=== PATIENT | male | born 1980 | race Caucasian/White ===

== ENCOUNTER 2018-11-14 19:17 | Emergency (ER) | payer SELFPAY ==
[2018-11-14] MEDS ORDERED: methylPREDNISolone 125 MG* 2 ML VIAL IM ONE (19:25)
[2018-11-14] MEDS ORDERED: Albuterol 2.5 MG/3 ML NEB.SOL* (0.083%) INH ONE ×2 (19:25→20:29)
--- NOTE | 2018-11-14 19:31 | UC ---
General HPI - HPI Summary HPI Summary: pt is c/o cough with congestion and wheezing since yesterday. + sob. No hx asthma, COPD or f/c's. + smoker. c/o chest heaviness which he describes as lungs being tight. he denies any cp. - History of Current Complaint Stated Complaint: CHEST CONGESTION,COUGH Time Seen by Provider: 11/14/18 19:24 Hx Obtained From: Patient Onset/Duration: Gradual Onset Timing: Constant - Allergy/Home Medications Allergies/Adverse Reactions: Allergies Allergy/AdvReac Type Severity Reaction Status Date / Time Penicillins Allergy Hives Verified 11/14/18 19:29 PMH/Surg Hx/FS Hx/Imm Hx Previously Healthy: Yes - Family History Known Family History: Positive: Non-Contributory - Social History Occupation: Employed Full-time Review of Systems All Other Systems Reviewed And Are Negative: Yes Constitutional: Negative: Fever, Chills Respiratory: Positive: Shortness Of Breath, Cough Cardiovascular: Negative: Palpitations, Chest Pain Physical Exam Triage Information Reviewed: Yes Appearance: Well-Appearing Vital Signs Reviewed: Yes Eyes: Positive: Conjunctiva Clear ENT: Positive: Normal ENT inspection Neck: Positive: Supple Respiratory: Positive: No respiratory distress, Decreased breath sounds, Expiration Cardiovascular: Positive: RRR, No Murmur Abdomen Description: Positive: Nontender Musculoskeletal: Positive: ROM Intact Neurological: Positive: Alert Psychological: Positive: Age Appropriate Behavior Skin Exam: Normal Re-Evaluation - Re-Evaluation First Eval Re-Evaluation Time: 20:28 Change: Improved - much less wheezing. pt feeling breathing is easier. Second Eval Re-Evaluation Time: 21:00 Change: Improved - pt states " I feel much better". repeat sat on RA is 90-91%. aeration is decreased but mostly clear with only an occasinal wheeze Course/Dx - Course Course Of Treatment: PT IMPROVED WITH NEBULIZER TX'S AND STEROID; HOWEVER, HE REMAINED HYPOXIC THUS ER TRANSFER ADVISED. PT REFUSED ER TRANSFER DESPITE RISK OF WORSENING, DISABILITY AND . HE IS A&OX3 AND ABLE TO MAKE DECISIONS THUS I MUST RESPECT HIS WISH TO GO HOME. I WILL STILL TX WITH AN ALBUTEROL INHALER AND PO PREDNISONE. - Differential Dx - Multi-Symptom Differential Diagnoses: Other - NO PTX OR INFILTRATE ON CXR. PT IMPROVED WITH NEBULIZER TX'S AND STEROID; HOWEVER, HE REMAINED HYPOXIC THUS ER - Diagnoses Provider Diagnosis: Bronchospasm, acute, Left against medical advice Discharge - Sign-Out/Discharge Documenting (check all that apply): Patient Departure All imaging exams completed and their final reports reviewed: No - Discharge Plan Condition: Stable Disposition: AGAINST MEDICAL ADVICE Prescriptions: predniSONE [Prednisone 20 MG TAB] 40 mg PO DAILY 5 Days #10 tablet Patient Education Materials: Bronchospasm (ED) Referrals: BRIT Luke [Medical Doctor] - As Soon As Possible Additional Instructions: USE THE ALBUTEROL INHALER 2 PUFFS EVERY 6 HOURS. GO TO THE ER AT ANY TIME IF YOU CHANGE YOUR MIND. - Billing Disposition and Condition Condition: STABLE Disposition: Against Medical Advice
[2018-11-14 20:28] VITALS: BP 145/83
[2018-11-14] MEDS ORDERED: Albuterol HFA INHALER* 8 gm MDI INH ONE (21:05)
--- NOTE | 2018-11-15 13:54 | UC ---
- Progress Note Progress Note: Radiology reading of chest x-ray from November 14, 2018 comes back as no acute disease process. Provider interpretation of the same date is no infiltrate therefore there is no discrepancy. Course/Dx - Diagnoses Provider Diagnoses: Bronchospasm, acute, Left against medical advice Discharge - Sign-Out/Discharge Documenting (check all that apply): Patient Departure All imaging exams completed and their final reports reviewed: Yes - Discharge Plan Condition: Stable Disposition: AGAINST MEDICAL ADVICE Prescriptions: predniSONE [Prednisone 20 MG TAB] 40 mg PO DAILY 5 Days #10 tablet Patient Education Materials: Bronchospasm (ED) Referrals: BRIT Luke [Medical Doctor] - As Soon As Possible Additional Instructions: USE THE ALBUTEROL INHALER 2 PUFFS EVERY 6 HOURS. GO TO THE ER AT ANY TIME IF YOU CHANGE YOUR MIND. - Billing Disposition and Condition Condition: STABLE Disposition: Against Medical Advice
== END 2018-11-14 21:17 | disposition left against medical advice (07) ==
LOC: UCCORT 19:17
DX: J98.01 Acute bronchospasm (principal); Z88.0 Allergy status to penicillin
CPT/HCPCS: 71046; 96372; 99203; A9270-GY; G0463; J2930

== ENCOUNTER 2022-10-13 13:04 | Inpatient (IN) ==
[2022-10-13] MEDS ORDERED: Lactated Ringers 1000 ml BAG 1,000 ML IV ONE (13:29)
[2022-10-13 14:20] LABS: Hematocrit 49.1 % (38-53); Hemoglobin 16.4 g/dL (13.2-16.3); Mean Corpuscular Hgb Conc 33.3 g/dL (31-36); Mean Corpuscular Volume 74.9 fL (80-97); Red Blood Count 6.55 10^6/uL (4.06-5.63); Red Cell Distribution Width 19.1 % (12-17); White Blood Count 5.7 10^3/uL (3.6-10.2)
[2022-10-13 14:21] LABS: ALT 17 U/L (7-52); AST 10 U/L (13-39); Albumin 2.9 g/dL (3.2-5.2); Albumin/Globulin Ratio 0.6 (1-3); Alkaline Phosphatase 230 U/L (35-149); Anion Gap 12 mmol/L (2-16); Blood Urea Nitrogen 9 mg/dL (6-24); CO2 Carbon Dioxide 28 mmol/L (22-32); Calcium 8.8 mg/dL (8.6-10.3); Chloride 84 mmol/L (101-111); Creatine Kinase 35 U/L (10-223); Creatinine, Serum 0.66 mg/dL (0.67-1.17); Globulin 4.8 g/dL (2-4); Magnesium 1.6 mg/dL (1.9-2.7); Phosphorus 3.5 mg/dL (2.5-5.0); Sodium 124 mmol/L (135-145); Total Protein 7.7 g/dL (6.4-8.9); eGFR CKD-EPI 119.3 (>60)
[2022-10-13 14:24] LABS: High Sens Troponin Baseline 8 pg/mL (<20)
[2022-10-13 14:37] LABS: Urine Appearance Clear; Urine Bilirubin Negative (Negative); Urine Blood Negative (Negative); Urine Color Yellow; Urine Glucose 3+(>=500 mg/dL) (Negative); Urine Ketones Trace (Negative); Urine Nitrite Negative (Negative); Urine Protein Negative (Negative); Urine Specific Gravity 1.029 (1.002-1.030); Urine Urobilinogen Negative (Negative)
[2022-10-13] MEDS ORDERED: Iohexol 350 (CONTRAST) 500 ML MDV IV ONE (14:47)
[2022-10-13 14:48] LABS: TSH Ultra Thyroid Stim Horm 3.97 mcIU/mL (0.34-5.60)
[2022-10-13 14:54] LABS: ABS Lymphocytes 0.5 10^3/uL (1.0-4.8); ABS Monocytes 0.3 10^3/uL (0.0-1.1); ABS Neutrophils 4.8 10^3/uL (1.5-7.6); ABS Nucleated RBC 0.01 10^3/ul; Eosinophil % 0.1 %; Mean Platelet Volume 8.5 fL (7.5-11.2); Microcytosis 2+; Nucleated Red Blood Cells % 0.1 /100 WBC (0.0-0.4); Platelet Count 643 10^3/uL (150-450)
[2022-10-13] MEDS ORDERED: Iodixanol (CONTRAST) 320 MG/ML 100 ML SDV IV ONE (15:05)
[2022-10-13] MEDS ORDERED: Morphine 4 MG/ML VIAL (1 ml) IV ONE (15:21)
[2022-10-13 15:29] LABS: High Sensitivity Troponin 1 Hr 6 pg/mL (<20)
[2022-10-13] MEDS ORDERED: Cefepime 2 GM in Dextrose 2 GM/50 ML BAG IV ONE (15:37)
[2022-10-13] MEDS ORDERED: NS 0.9% 1000 ml BAG 1,000 ML IV ONE (15:39)
[2022-10-13 15:51] LABS: C Reactive Protein 348.54 mg/L (<8.01)
[2022-10-13] MEDS ORDERED: Vancomycin 1,250 MG in NS 0.9% 250 ml 250 ML IVPB ONE (16:00)
[2022-10-13 17:02] LABS: Hematocrit 43.5 % (38-53); Mean Corpuscular Hemoglobin 24.3 pg (27-33); Mean Corpuscular Hgb Conc 32.3 g/dL (31-36); Mean Corpuscular Volume 75.2 fL (80-97); Mean Platelet Volume 8.3 fL (7.5-11.2); Platelet Count 540 10^3/uL (150-450); Red Blood Count 5.78 10^6/uL (4.06-5.63); Red Cell Distribution Width 18.7 % (12-17); White Blood Count 7.6 10^3/uL (3.6-10.2)
[2022-10-13] MEDS ORDERED: Dextrose 50% Syringe 50 ml 25 GM/50 ML SYRINGE IV PUSH PRN ×3 (17:13→17:30)
[2022-10-13] MEDS ORDERED: Insulin GLARGINE 100 un/ml 10 ml VIAL SUBCUT ONE ×2 (17:13→17:30)
[2022-10-13 17:17] LABS: Glucose Confirmatory 461 mg/dL (70-100)
[2022-10-13] MEDS ORDERED: Vancomycin per Pharmacy 1 EA NOTE FOLLOW UP PRN (17:18)
[2022-10-13] MEDS ORDERED: Magnesium Sulf 4 GM/100 ML IV 4,000 MG/100 ML BAG IVPB ONE (17:19)
[2022-10-13 17:42] LABS: Glucose 546 mg/dL (70-100)
[2022-10-13] MEDS ORDERED: Zosyn per Pharmacy NOTE FOLLOW UP SCH (18:00)
[2022-10-13] MEDS: Lactated Ringers 1000 ml BAG 1,000 ML IV SCH (18:05)
[2022-10-13 18:11] LABS: Lipase < 10 U/L (11.0-82.0)
[2022-10-13 18:28] LABS: Albumin 2.1 g/dL (3.2-5.2); Albumin/Globulin Ratio 0.6 (1-3); Calcium 7.5 mg/dL (8.6-10.3); Creatinine, Serum 0.63 mg/dL (0.67-1.17); Globulin 3.3 g/dL (2-4); Magnesium 1.4 mg/dL (1.9-2.7); Phosphorus 3.2 mg/dL (2.5-5.0); Potassium 3.9 mmol/L (3.5-5.0); Total Bilirubin 0.3 mg/dL (0.2-1.0); Total Protein 5.4 g/dL (6.4-8.9)
[2022-10-13] MEDS ORDERED: HYDROmorphone 0.5 MG/0.5 ML SYRINGE IV SLOW PU ONE (21:53)
[2022-10-14] MEDS: Vancomycin 750 MG in NS 0.9% 250 ML IVPB SCH ×3 (03:01→17:35)
[2022-10-14] MEDS: Lactated Ringers 1000 ml BAG 1,000 ML IV SCH ×3 (03:01→18:00)
[2022-10-14] MEDS ORDERED: Cefepime 2 GM in Dextrose 2 GM/50 ML BAG IV SCH (04:00)
[2022-10-14 04:16] LABS: Hematocrit 45.8 % (38-53); Mean Corpuscular Hemoglobin 24.5 pg (27-33); Mean Corpuscular Hgb Conc 32.8 g/dL (31-36); Mean Corpuscular Volume 74.8 fL (80-97); Mean Platelet Volume 8.1 fL (7.5-11.2); Platelet Count 569 10^3/uL (150-450); Red Blood Count 6.13 10^6/uL (4.06-5.63); Red Cell Distribution Width 19.1 % (12-17); White Blood Count 21.4 10^3/uL (3.6-10.2)
[2022-10-14 04:31] LABS: Albumin 2.3 g/dL (3.2-5.2); Albumin/Globulin Ratio 0.7 (1-3); Calcium 8.1 mg/dL (8.6-10.3); Creatinine, Serum 0.69 mg/dL (0.67-1.17); Globulin 3.4 g/dL (2-4); Magnesium 2.7 mg/dL (1.9-2.7); Phosphorus 3.8 mg/dL (2.5-5.0); Potassium 3.6 mmol/L (3.5-5.0); Total Bilirubin 0.2 mg/dL (0.2-1.0); Total Protein 5.7 g/dL (6.4-8.9); eGFR CKD-EPI 117.8 (>60)
[2022-10-14 04:38] LABS: ABS Basophils 0.1 10^3/uL (0.0-0.1); ABS Lymphocytes 0.9 10^3/uL (1.0-4.8); ABS Monocytes 0.4 10^3/uL (0.0-1.1); ABS Nucleated RBC 0.01 10^3/ul; Eosinophil % 0.1 %; Lymphocyte % 4.2 %
[2022-10-14] MEDS ORDERED: KCL 20 MEQ/100 ML IVPREMIX 20 MEQ/100 ML BAG ONE (07:37)
[2022-10-14] MEDS: KCL 20 MEQ/100 ML IVPREMIX 20 MEQ/100 ML BAG IV SCH ×2 (07:43→10:02)
[2022-10-14] MEDS ORDERED: Lactated Ringers 1000 ml BAG 1,000 ML IV ONE (09:29)
[2022-10-14] MEDS: Pantoprazole VIAL 40 MG VIAL IV SCH (11:42)
[2022-10-14] MEDS ORDERED: HYDROmorphone 1 MG/1 ML SYRINGE IV ONE (12:15)
[2022-10-14 12:37] LABS: Body Fluid Appearance Cloudy; Body Fluid Source Peritonial Fluid
[2022-10-14 12:38] LABS: Body Fluid Color Amber
[2022-10-14 12:42] LABS: Body Fluid WBC 22283 /mcL
[2022-10-14] MEDS ORDERED: HYDROmorphone 1 MG/1 ML SYRINGE IV SLOW PU PRN (13:17)
[2022-10-14 13:33] LABS: Body Fluid Mono 3 %; Body Fluid Total Cells Counted 200
[2022-10-14 16:05] LABS: Body Fluid Appearance Cloudy; Body Fluid Color Amber; Body Fluid Source Peritonial Fluid
[2022-10-14] MEDS ORDERED: Vancomycin Trough Check NOTE FOLLOW UP ONE (16:30)
[2022-10-14 17:14] LABS: Body Fluid WBC 11502 /mcL
[2022-10-14 17:17] LABS: Body Fluid Mono 9 %; Body Fluid Total Cells Counted 200
[2022-10-14] MEDS ORDERED: Gadoteridol (CONTRAST) 279.3 MG/ML 10 ML IV ONE (21:55)
[2022-10-14] MEDS: Nystatin SUSPENSION 100,000 UNITS/ML UDC PO SCH (22:30)
[2022-10-14] MEDS: Enoxaparin 40 MG/0.4 ML SYR SUBCUT SCH (22:31)
[2022-10-15] MEDS: Vancomycin 1,000 MG in NS 0.9% 250 ml 250 ML IVPB SCH ×3 (00:50→17:28)
[2022-10-15] MEDS: Acetaminophen IV 1 GM/100ML 1,000 MG/100 ML BAG IV PRN ×2 (03:43→17:26)
[2022-10-15] MEDS: Lactated Ringers 1000 ml BAG 1,000 ML IV SCH ×2 (04:53→17:08)
[2022-10-15 05:24] LABS: Hematocrit 33.1 % (38-53); Hemoglobin 11.1 g/dL (13.2-16.3); Mean Corpuscular Hemoglobin 24.4 pg (27-33); Mean Corpuscular Hgb Conc 33.6 g/dL (31-36); Mean Corpuscular Volume 72.8 fL (80-97); Platelet Count 465 10^3/uL (150-450); Red Blood Count 4.55 10^6/uL (4.06-5.63); Red Cell Distribution Width 19.1 % (12-17); White Blood Count 25.4 10^3/uL (3.6-10.2)
[2022-10-15 05:34] LABS: Albumin/Globulin Ratio 0.6 (1-3); Calcium 8.2 mg/dL (8.6-10.3); Creatinine, Serum 0.62 mg/dL (0.67-1.17); Globulin 3.2 g/dL (2-4); Magnesium 1.8 mg/dL (1.9-2.7); Potassium 4.7 mmol/L (3.5-5.0); Total Bilirubin 0.2 mg/dL (0.2-1.0); Total Protein 5.2 g/dL (6.4-8.9); eGFR CKD-EPI 121.6 (>60)
[2022-10-15 06:11] LABS: Anisocytosis 2+
[2022-10-15 06:12] LABS: ABS Lymphocytes 0.7 10^3/uL (1.0-4.8); ABS Monocytes 0.6 10^3/uL (0.0-1.1); ABS Neutrophils 24.1 10^3/uL (1.5-7.6); Lymphocyte % 2.7 %; Polychromasia 1+
[2022-10-15] MEDS ORDERED: Magnesium Sulfate 2 gm BAG 2 GM/50 ML BAG IVPB ONE (07:49)
[2022-10-15 08:13] LABS: Urine Benzodiazepine Screen None Detected (None Detect); Urine Buprenorphine Screen None Detected (None Detect); Urine Cannabinoids Screen None Detected (None Detect); Urine Fentanyl Screen Presumptive Positive (None Detect); Urine Hydrocodone Screen Presumptive Positive (None Detect); Urine Opiates Screen Presumptive Positive (None Detect)
[2022-10-15] MEDS: Pantoprazole VIAL 40 MG VIAL IV SCH (10:10)
[2022-10-15] MEDS: Nystatin SUSPENSION 100,000 UNITS/ML UDC PO SCH ×4 (10:10→20:03)
[2022-10-15 15:20] LABS: Albumin, BF 1.7 g/dL; Fluid Type, Albumin PERITONEAL FLUID; Fluid Type, Protein, Total PERITONEAL FLUID; Total Protein, BF 4.1 g/dL
[2022-10-15 17:33] LABS: ABS Basophils 0.2 10^3/uL (0.0-0.1); ABS Lymphocytes 0.8 10^3/uL (1.0-4.8); ABS Monocytes 0.6 10^3/uL (0.0-1.1); ABS Neutrophils 25.8 10^3/uL (1.5-7.6); ABS Nucleated RBC 0.01 10^3/ul; Hemoglobin 11.4 g/dL (13.2-16.3); Lymphocyte % 2.9 %; Mean Corpuscular Hemoglobin 24.1 pg (27-33); Mean Corpuscular Hgb Conc 32.6 g/dL (31-36); Mean Corpuscular Volume 74.1 fL (80-97); Mean Platelet Volume 7.9 fL (7.5-11.2); Platelet Count 485 10^3/uL (150-450); Red Blood Count 4.72 10^6/uL (4.06-5.63); Red Cell Distribution Width 18.9 % (12-17); White Blood Count 27.3 10^3/uL (3.6-10.2)
[2022-10-15 17:46] LABS: Calcium 8.7 mg/dL (8.6-10.3); Creatinine, Serum 0.59 mg/dL (0.67-1.17); eGFR CKD-EPI 123.5 (>60)
[2022-10-15] MEDS: metroNIDAZOLE IV 500 MG/100ML 500 MG/100 ML BAG IVPB SCH (20:02)
[2022-10-15] MEDS: Cefepime 2 GM in Dextrose 2 GM/50 ML BAG IV SCH (20:03)
[2022-10-15] MEDS: Enoxaparin 40 MG/0.4 ML SYR SUBCUT SCH (20:37)
[2022-10-15] MEDS ORDERED: Insulin GLARGINE 100 un/ml 10 ml VIAL SUBCUT SCH (21:00)
[2022-10-16] MEDS: Vancomycin 1,000 MG in NS 0.9% 250 ml 250 ML IVPB SCH ×3 (00:09→15:57)
[2022-10-16] MEDS: metroNIDAZOLE IV 500 MG/100ML 500 MG/100 ML BAG IVPB SCH ×3 (02:14→17:36)
[2022-10-16] MEDS ORDERED: HYDROmorphone 0.5 MG/0.5 ML SYRINGE IV SLOW PU PRN (02:35)
[2022-10-16] MEDS ORDERED: Naloxone Nasal Spray 4 MG/0.1 ML NASAL.SPR INTRANASAL PRN (02:36)
[2022-10-16] MEDS: Acetaminophen IV 1 GM/100ML 1,000 MG/100 ML BAG IV SCH ×3 (03:03→17:36)
[2022-10-16] MEDS: Cefepime 2 GM in Dextrose 2 GM/50 ML BAG IV SCH ×2 (05:48→18:16)
[2022-10-16 06:26] LABS: ABS Basophils 0.1 10^3/uL (0.0-0.1); ABS Lymphocytes 0.8 10^3/uL (1.0-4.8); ABS Monocytes 0.6 10^3/uL (0.0-1.1); ABS Neutrophils 27.8 10^3/uL (1.5-7.6); Eosinophil % 0.1 %; Hematocrit 33.7 % (38-53); Hemoglobin 10.9 g/dL (13.2-16.3); Lymphocyte % 2.8 %; Mean Corpuscular Hemoglobin 23.7 pg (27-33); Mean Corpuscular Hgb Conc 32.2 g/dL (31-36); Mean Corpuscular Volume 73.6 fL (80-97); Mean Platelet Volume 8.1 fL (7.5-11.2); Platelet Count 467 10^3/uL (150-450); Red Blood Count 4.58 10^6/uL (4.06-5.63); White Blood Count 29.3 10^3/uL (3.6-10.2)
[2022-10-16 06:38] LABS: Albumin/Globulin Ratio 0.6 (1-3); C Reactive Protein 305.07 mg/L (<8.01); Calcium 8.5 mg/dL (8.6-10.3); Creatinine, Serum 0.5 mg/dL (0.67-1.17); Globulin 3.3 g/dL (2-4); Magnesium 1.5 mg/dL (1.9-2.7); Potassium 4.2 mmol/L (3.5-5.0); Total Bilirubin 0.2 mg/dL (0.2-1.0); Total Protein 5.3 g/dL (6.4-8.9); eGFR CKD-EPI 129.8 (>60)
[2022-10-16] MEDS ORDERED: Magnesium Sulf 4 GM/100 ML IV 4,000 MG/100 ML BAG IVPB ONE (07:31)
[2022-10-16] MEDS: Pantoprazole VIAL 40 MG VIAL IV SCH (08:09)
[2022-10-16] MEDS: Nystatin SUSPENSION 100,000 UNITS/ML UDC PO SCH ×4 (08:09→20:17)
[2022-10-16] MEDS ORDERED: Vancomycin Trough Check NOTE FOLLOW UP ONE (08:30)
[2022-10-16] MEDS ORDERED: Insulin GLARGINE 100 un/ml 10 ml VIAL SUBCUT SCH (09:00)
[2022-10-16] MEDS: Polyethylene Glycol 3350 17 GM PACKET PO SCH ×2 (09:37→20:27)
[2022-10-16] MEDS: Magnesium Hydroxide LIQ 30 ML UDC PO SCH ×2 (09:38→20:17)
[2022-10-16] MEDS: Lactated Ringers 1000 ml BAG 1,000 ML IV SCH ×2 (11:29→22:14)
[2022-10-16 16:41] LABS: ABS Lymphocytes 1.2 10^3/uL (1.0-4.8); ABS Monocytes 0.6 10^3/uL (0.0-1.1); ABS Neutrophils 25.3 10^3/uL (1.5-7.6); Eosinophil % 0.1 %; Lymphocyte % 4.5 %; Mean Corpuscular Hemoglobin 23.8 pg (27-33); Mean Corpuscular Hgb Conc 32.3 g/dL (31-36); Mean Corpuscular Volume 73.6 fL (80-97); Mean Platelet Volume 8.1 fL (7.5-11.2); Platelet Count 481 10^3/uL (150-450); Red Blood Count 4.63 10^6/uL (4.06-5.63); Red Cell Distribution Width 19.2 % (12-17); White Blood Count 27.1 10^3/uL (3.6-10.2)
[2022-10-16] MEDS: Senna TAB 8.6 mg TAB PO SCH (20:17)
[2022-10-16] MEDS: Insulin GLARGINE 100 un/ml 10 ml VIAL SUBCUT SCH (20:22)
[2022-10-16] MEDS: Enoxaparin 40 MG/0.4 ML SYR SUBCUT SCH (20:27)
[2022-10-17] MEDS: Vancomycin 1,000 MG in NS 0.9% 250 ml 250 ML IVPB SCH ×3 (00:25→16:25)
[2022-10-17] MEDS: Acetaminophen IV 1 GM/100ML 1,000 MG/100 ML BAG IV SCH ×3 (03:01→18:33)
[2022-10-17] MEDS: metroNIDAZOLE IV 500 MG/100ML 500 MG/100 ML BAG IVPB SCH ×3 (03:05→18:33)
[2022-10-17] MEDS: Cefepime 2 GM in Dextrose 2 GM/50 ML BAG IV SCH ×2 (05:14→17:30)
[2022-10-17 05:40] LABS: Hematocrit 32.6 % (38-53); Hemoglobin 10.7 g/dL (13.2-16.3); Mean Corpuscular Hemoglobin 24.1 pg (27-33); Mean Corpuscular Hgb Conc 32.9 g/dL (31-36); Mean Corpuscular Volume 73.3 fL (80-97); Mean Platelet Volume 7.9 fL (7.5-11.2); Platelet Count 431 10^3/uL (150-450); Red Blood Count 4.45 10^6/uL (4.06-5.63); Red Cell Distribution Width 19.2 % (12-17); White Blood Count 22.6 10^3/uL (3.6-10.2)
[2022-10-17 05:56] LABS: Creatinine, Serum 0.42 mg/dL (0.67-1.17); Magnesium 1.6 mg/dL (1.9-2.7); Potassium 3.7 mmol/L (3.5-5.0); eGFR CKD-EPI 136.8 (>60)
[2022-10-17 05:59] LABS: ABS Monocytes 0.7 10^3/uL (0.0-1.1); ABS Neutrophils 20.8 10^3/uL (1.5-7.6); ABS Nucleated RBC 0.01 10^3/ul; Eosinophil % 0.1 %; Lymphocyte % 4.4 %
[2022-10-17] MEDS ORDERED: Magnesium Sulf 4 GM/100 ML IV 4,000 MG/100 ML BAG IVPB ONE (07:02)
[2022-10-17] MEDS: Polyethylene Glycol 3350 17 GM PACKET PO SCH ×3 (07:19→21:08)
[2022-10-17] MEDS: Nystatin SUSPENSION 100,000 UNITS/ML UDC PO SCH ×5 (07:19→21:07)
[2022-10-17] MEDS: Magnesium Hydroxide LIQ 30 ML UDC PO SCH ×3 (07:19→21:07)
[2022-10-17] MEDS: Pantoprazole VIAL 40 MG VIAL IV SCH (07:42)
[2022-10-17] MEDS: Lactated Ringers 1000 ml BAG 1,000 ML IV SCH ×2 (08:47→19:26)
[2022-10-17] MEDS: Enoxaparin 40 MG/0.4 ML SYR SUBCUT SCH (10:42)
[2022-10-17] MEDS ORDERED: Iodixanol (CONTRAST) 320 MG/ML 100 ML SDV IV ONE (10:44)
[2022-10-17 11:01] LABS: Lactate Dehydrogenase, BF 3690 U/L
[2022-10-17 12:04] LABS: Albumin, BF 1.5 g/dL; Fluid Type, Albumin PERITONEAL
[2022-10-17 12:05] LABS: Fluid Type, Protein, Total PERITONEAL; Glucose, BF 99 mg/dL; Total Protein, BF 3.7 g/dL
[2022-10-17] MEDS ORDERED: NS 0.9% 1000 ml BAG 1,000 ML IV SCH (18:00)
[2022-10-17] MEDS: Senna TAB 8.6 mg TAB PO SCH (21:07)
[2022-10-17] MEDS: Insulin GLARGINE 100 un/ml 10 ml VIAL SUBCUT SCH (21:08)
[2022-10-18] MEDS: Vancomycin 1,000 MG in NS 0.9% 250 ml 250 ML IVPB SCH ×3 (00:31→17:55)
[2022-10-18] MEDS: metroNIDAZOLE IV 500 MG/100ML 500 MG/100 ML BAG IVPB SCH ×3 (02:06→19:00)
[2022-10-18] MEDS: Acetaminophen IV 1 GM/100ML 1,000 MG/100 ML BAG IV SCH ×3 (02:07→20:35)
[2022-10-18] MEDS: NS 0.9% 1000 ml BAG 1,000 ML IV SCH ×2 (05:43→19:00)
[2022-10-18] MEDS: Cefepime 2 GM in Dextrose 2 GM/50 ML BAG IV SCH ×2 (05:48→17:57)
[2022-10-18] MEDS ORDERED: NS 0.9% 1000 ml BAG 1,000 ML IV SCH (06:00)
[2022-10-18] MEDS ORDERED: Buffered Lidocaine 1% SYRIN 1 ml INTRADERM ONE (06:00)
[2022-10-18 07:54] LABS: ABS Lymphocytes 1.1 10^3/uL (1.0-4.8); ABS Monocytes 0.8 10^3/uL (0.0-1.1); ABS Neutrophils 13.5 10^3/uL (1.5-7.6); ABS Nucleated RBC 0.01 10^3/ul; Eosinophil % 0.2 %; Hemoglobin 10.2 g/dL (13.2-16.3); Lymphocyte % 7.1 %; Mean Corpuscular Hemoglobin 23.5 pg (27-33); Mean Corpuscular Hgb Conc 32.9 g/dL (31-36); Mean Corpuscular Volume 71.5 fL (80-97); Mean Platelet Volume 7.9 fL (7.5-11.2); Platelet Count 449 10^3/uL (150-450); Red Blood Count 4.33 10^6/uL (4.06-5.63); Red Cell Distribution Width 19.3 % (12-17); White Blood Count 15.4 10^3/uL (3.6-10.2)
[2022-10-18] MEDS: Magnesium Hydroxide LIQ 30 ML UDC PO SCH ×2 (08:09→21:05)
[2022-10-18] MEDS: Nystatin SUSPENSION 100,000 UNITS/ML UDC PO SCH ×4 (08:09→21:05)
[2022-10-18] MEDS: Polyethylene Glycol 3350 17 GM PACKET PO SCH ×2 (08:09→21:05)
[2022-10-18] MEDS: Pantoprazole VIAL 40 MG VIAL IV SCH (08:10)
[2022-10-18 08:19] LABS: Calcium 7.7 mg/dL (8.6-10.3); Creatinine, Serum 0.5 mg/dL (0.67-1.17); Magnesium 1.7 mg/dL (1.9-2.7); Potassium 3.8 mmol/L (3.5-5.0); eGFR CKD-EPI 129.8 (>60)
[2022-10-18 08:29] LABS: Vancomycin Trough 14.6 mcg/mL
[2022-10-18] MEDS ORDERED: Vancomycin Trough Check NOTE FOLLOW UP ONE (08:30)
[2022-10-18] MEDS ORDERED: Prochlorperazine 5 mg/ml 2 ml VIAL (10 mg) IV PRN (08:42)
[2022-10-18] MEDS ORDERED: Magnesium Sulfate IV 3 GM in NS 0.9% 100 ml BAG 100 ML IVPB ONE (09:00)
[2022-10-18 09:53] LABS: C Reactive Protein 186.82 mg/L (<8.01)
[2022-10-18] MEDS: Enoxaparin 40 MG/0.4 ML SYR SUBCUT SCH (11:05)
[2022-10-18] MEDS ORDERED: fentaNYL 100 mcg/2 ml 50 MCG/ML VIAL ONE (13:15)
[2022-10-18] MEDS: Insulin GLARGINE 100 un/ml 10 ml VIAL SUBCUT SCH (21:05)
[2022-10-18] MEDS: Senna TAB 8.6 mg TAB PO SCH (21:05)
[2022-10-19] MEDS: Vancomycin 1,000 MG in NS 0.9% 250 ml 250 ML IVPB SCH ×3 (00:32→18:05)
[2022-10-19] MEDS: Acetaminophen IV 1 GM/100ML 1,000 MG/100 ML BAG IV SCH ×3 (02:13→18:18)
[2022-10-19] MEDS: metroNIDAZOLE IV 500 MG/100ML 500 MG/100 ML BAG IVPB SCH ×2 (02:13→11:38)
[2022-10-19] MEDS: Cefepime 2 GM in Dextrose 2 GM/50 ML BAG IV SCH (05:25)
[2022-10-19] MEDS: NS 0.9% 1000 ml BAG 1,000 ML IV SCH (05:25)
[2022-10-19 05:54] LABS: ABS Basophils 0.1 10^3/uL (0.0-0.1); ABS Lymphocytes 1.5 10^3/uL (1.0-4.8); ABS Monocytes 0.9 10^3/uL (0.0-1.1); ABS Neutrophils 11.5 10^3/uL (1.5-7.6); ABS Nucleated RBC 0.01 10^3/ul; Eosinophil % 0.3 %; Hematocrit 31.7 % (38-53); Hemoglobin 10.2 g/dL (13.2-16.3); Lymphocyte % 10.5 %; Mean Corpuscular Hemoglobin 23.7 pg (27-33); Mean Corpuscular Hgb Conc 32.3 g/dL (31-36); Mean Corpuscular Volume 73.2 fL (80-97); Mean Platelet Volume 8.1 fL (7.5-11.2); Nucleated Red Blood Cells % 0.1 /100 WBC (0.0-0.4); Platelet Count 471 10^3/uL (150-450); Red Blood Count 4.32 10^6/uL (4.06-5.63); Red Cell Distribution Width 19.6 % (12-17)
[2022-10-19 06:11] LABS: Calcium 7.4 mg/dL (8.6-10.3); Creatinine, Serum 0.48 mg/dL (0.67-1.17); Magnesium 1.9 mg/dL (1.9-2.7); Potassium 3.8 mmol/L (3.5-5.0); eGFR CKD-EPI 131.4 (>60)
[2022-10-19] MEDS: Polyethylene Glycol 3350 17 GM PACKET PO SCH ×2 (09:47→20:52)
[2022-10-19] MEDS: Magnesium Hydroxide LIQ 30 ML UDC PO SCH ×2 (09:48→20:52)
[2022-10-19] MEDS: Pantoprazole VIAL 40 MG VIAL IV SCH (09:50)
[2022-10-19] MEDS: Nystatin SUSPENSION 100,000 UNITS/ML UDC PO SCH ×4 (09:50→20:52)
[2022-10-19 10:19] LABS: Body Fluid WBC 278856 /mcL
[2022-10-19 10:21] LABS: Body Fluid Appearance Bloody; Body Fluid Color Red; Body Fluid Source Peritonial Fluid
[2022-10-19] MEDS ORDERED: Propofol 0 MG/0 ML BTL ONE (11:15)
[2022-10-19] MEDS ORDERED: fentaNYL 100 mcg/2 ml 50 MCG/ML VIAL ONE (11:15)
[2022-10-19] MEDS ORDERED: Midazolam 5 mg/5 ml VIAL 1 mg/ml 5 ml VIAL (5 mg) ONE (11:15)
[2022-10-19 11:25] LABS: Body Fluid Mono 5 %; Body Fluid Total Cells Counted 200
[2022-10-19 13:50] LABS: Body Fluid Appearance Cloudy; Body Fluid Color Yellow; Body Fluid Source Peritonial Fluid
[2022-10-19 14:00] LABS: Body Fluid Mono 4 %; Body Fluid Total Cells Counted 200
[2022-10-19 14:01] LABS: Body Fluid WBC 11938 /mcL
[2022-10-19] MEDS: Enoxaparin 40 MG/0.4 ML SYR SUBCUT SCH (14:32)
[2022-10-19] MEDS ORDERED: Furosemide 20 mg/2 ml IV VIAL IV SLOW PU ONE (15:14)
[2022-10-19] MEDS: oxyCODONE SR 10 mg TAB PO SCH (20:52)
[2022-10-19] MEDS: Senna TAB 8.6 mg TAB PO SCH (20:52)
[2022-10-19] MEDS: Insulin GLARGINE 100 un/ml 10 ml VIAL SUBCUT SCH (20:53)
[2022-10-19] MEDS ORDERED: Mineral Oil ENEMA 118 ML/BOTTLE BOTTLE PR ONE (21:04)
[2022-10-20] MEDS: Vancomycin 1,000 MG in NS 0.9% 250 ml 250 ML IVPB SCH ×2 (01:19→09:24)
[2022-10-20] MEDS: Acetaminophen IV 1 GM/100ML 1,000 MG/100 ML BAG IV SCH ×3 (03:05→18:11)
[2022-10-20 06:13] LABS: Hematocrit 29.4 % (38-53); Hemoglobin 9.6 g/dL (13.2-16.3); Mean Corpuscular Hemoglobin 23.7 pg (27-33); Mean Corpuscular Hgb Conc 32.5 g/dL (31-36); Mean Corpuscular Volume 72.9 fL (80-97); Platelet Count 501 10^3/uL (150-450); Red Blood Count 4.04 10^6/uL (4.06-5.63); Red Cell Distribution Width 19.6 % (12-17); White Blood Count 16.2 10^3/uL (3.6-10.2)
[2022-10-20 06:30] LABS: Albumin 1.7 g/dL (3.2-5.2); Albumin/Globulin Ratio 0.5 (1-3); Calcium 7.2 mg/dL (8.6-10.3); Creatinine, Serum 0.5 mg/dL (0.67-1.17); Globulin 3.2 g/dL (2-4); Magnesium 1.6 mg/dL (1.9-2.7); Potassium 3.6 mmol/L (3.5-5.0); Total Bilirubin 0.2 mg/dL (0.2-1.0); Total Protein 4.9 g/dL (6.4-8.9); eGFR CKD-EPI 129.8 (>60)
[2022-10-20] MEDS ORDERED: Magnesium Sulfate IV 3 GM in NS 0.9% 100 ml BAG 100 ML IVPB ONE (06:56)
[2022-10-20 08:18] LABS: ABS Eosinophils 0.1 10^3/uL (0.0-0.5); ABS Lymphocytes 1.4 10^3/uL (1.0-4.8); ABS Neutrophils 13.7 10^3/uL (1.5-7.6); ABS Nucleated RBC 0.01 10^3/ul; Eosinophil % 0.3 %; Lymphocyte % 8.9 %; Nucleated Red Blood Cells % 0.1 /100 WBC (0.0-0.4)
[2022-10-20] MEDS: Pantoprazole VIAL 40 MG VIAL IV SCH (09:22)
[2022-10-20] MEDS: oxyCODONE SR 10 mg TAB PO SCH ×2 (09:22→22:03)
[2022-10-20] MEDS: Nystatin SUSPENSION 100,000 UNITS/ML UDC PO SCH ×4 (09:23→22:04)
[2022-10-20] MEDS: Magnesium Hydroxide LIQ 30 ML UDC PO SCH ×2 (09:23→22:04)
[2022-10-20] MEDS: Polyethylene Glycol 3350 17 GM PACKET PO SCH ×2 (10:38→22:04)
[2022-10-20 11:13] LABS: INR 1.6 (0.88-1.18)
[2022-10-20] MEDS: Enoxaparin 40 MG/0.4 ML SYR SUBCUT SCH (12:09)
[2022-10-20 12:38] LABS: HIV 4th Generation Nonreactive (Nonreactive)
[2022-10-20] MEDS ORDERED: Furosemide 40 mg/4 ml IV VIAL IV SLOW PU ONE (17:27)
[2022-10-20] MEDS: Vancomycin 1,250 MG in NS 0.9% 250 ml 250 ML IVPB SCH (18:21)
[2022-10-20] MEDS ORDERED: Sodium Phosphate ADULT ENEMA 133 ML BTL PR ONE (21:00)
[2022-10-20] MEDS: Senna TAB 8.6 mg TAB PO SCH (22:04)
[2022-10-20] MEDS: Insulin GLARGINE 100 un/ml 10 ml VIAL SUBCUT SCH (22:11)
[2022-10-21] MEDS: Vancomycin 1,250 MG in NS 0.9% 250 ml 250 ML IVPB SCH ×3 (01:37→23:06)
[2022-10-21] MEDS: Acetaminophen IV 1 GM/100ML 1,000 MG/100 ML BAG IV SCH ×3 (03:44→21:10)
[2022-10-21] MEDS ORDERED: Mineral Oil ENEMA 118 ML/BOTTLE BOTTLE PR PRN (03:55)
[2022-10-21 07:53] LABS: Hemoglobin 9.9 g/dL (13.2-16.3); Mean Corpuscular Hemoglobin 23.5 pg (27-33); Mean Corpuscular Hgb Conc 31.9 g/dL (31-36); Mean Corpuscular Volume 73.8 fL (80-97); Mean Platelet Volume 8.1 fL (7.5-11.2); Platelet Count 570 10^3/uL (150-450); Red Blood Count 4.21 10^6/uL (4.06-5.63); Red Cell Distribution Width 19.5 % (12-17); White Blood Count 19.1 10^3/uL (3.6-10.2)
[2022-10-21 08:11] LABS: Albumin 1.9 g/dL (3.2-5.2); Albumin/Globulin Ratio 0.5 (1-3); Calcium 7.1 mg/dL (8.6-10.3); Creatinine, Serum 0.49 mg/dL (0.67-1.17); Globulin 3.5 g/dL (2-4); Magnesium 1.7 mg/dL (1.9-2.7); Potassium 4.2 mmol/L (3.5-5.0); Total Bilirubin 0.3 mg/dL (0.2-1.0); Total Protein 5.4 g/dL (6.4-8.9); eGFR CKD-EPI 130.6 (>60)
[2022-10-21] MEDS ORDERED: Magnesium Sulfate IV 3 GM in NS 0.9% 100 ml BAG 100 ML IVPB ONE (09:00)
[2022-10-21 09:02] LABS: ABS Basophils 0.1 10^3/uL (0.0-0.1); ABS Lymphocytes 1.8 10^3/uL (1.0-4.8); ABS Monocytes 0.8 10^3/uL (0.0-1.1); ABS Neutrophils 16.4 10^3/uL (1.5-7.6); Anisocytosis 1+; Lymphocyte % 9.4 %; Microcytosis 2+
[2022-10-21] MEDS: oxyCODONE SR 10 mg TAB PO SCH ×2 (09:28→21:14)
[2022-10-21] MEDS: Magnesium Hydroxide LIQ 30 ML UDC PO SCH ×2 (09:29→21:20)
[2022-10-21] MEDS: Nystatin SUSPENSION 100,000 UNITS/ML UDC PO SCH ×4 (09:29→21:18)
[2022-10-21] MEDS: Polyethylene Glycol 3350 17 GM PACKET PO SCH ×2 (09:30→21:20)
[2022-10-21] MEDS: Pantoprazole VIAL 40 MG VIAL IV SCH (09:31)
[2022-10-21] MEDS: Enoxaparin 40 MG/0.4 ML SYR SUBCUT SCH (11:36)
[2022-10-21] MEDS: Furosemide 40 mg/4 ml IV VIAL IV SCH (12:14)
[2022-10-21 14:22] LABS: Lactate Dehydrogenase, BF 5990 U/L
[2022-10-21] MEDS ORDERED: Iodixanol (CONTRAST) 320 MG/ML 100 ML SDV IV ONE (14:28)
[2022-10-21] MEDS ORDERED: Furosemide 40 mg/4 ml IV VIAL IV ONE (16:00)
[2022-10-21] MEDS ORDERED: Vancomycin Trough Check NOTE FOLLOW UP ONE (16:30)
[2022-10-21 16:55] LABS: Urine Appearance Clear; Urine Bilirubin Negative (Negative); Urine Blood Negative (Negative); Urine Color Straw; Urine Glucose Negative (Negative); Urine Ketones Negative (Negative); Urine Nitrite Negative (Negative); Urine Protein Negative (Negative); Urine Specific Gravity 1.005 (1.002-1.030); Urine Urobilinogen Negative (Negative)
[2022-10-21 17:34] LABS: Creatinine, Serum 0.52 mg/dL (0.67-1.17); eGFR CKD-EPI 128.3 (>60)
[2022-10-21 17:37] LABS: Vancomycin Trough 18.1 mcg/mL
[2022-10-21] MEDS: Insulin GLARGINE 100 un/ml 10 ml VIAL SUBCUT SCH (21:16)
[2022-10-21] MEDS: Senna TAB 8.6 mg TAB PO SCH (21:20)
[2022-10-21] MEDS ORDERED: Gadoteridol (CONTRAST) 279.3 MG/ML 10 ML IV ONE (22:37)
[2022-10-22] MEDS: Acetaminophen IV 1 GM/100ML 1,000 MG/100 ML BAG IV SCH ×3 (05:30→21:25)
[2022-10-22] MEDS: Vancomycin 1,250 MG in NS 0.9% 250 ml 250 ML IVPB SCH ×3 (05:55→21:49)
[2022-10-22 08:04] LABS: ABS Lymphocytes 1.7 10^3/uL (1.0-4.8); ABS Monocytes 0.6 10^3/uL (0.0-1.1); ABS Neutrophils 19.6 10^3/uL (1.5-7.6); ABS Nucleated RBC 0.01 10^3/ul; Eosinophil % 0.2 %; Hematocrit 28.9 % (38-53); Hemoglobin 9.4 g/dL (13.2-16.3); Lymphocyte % 7.9 %; Mean Corpuscular Hemoglobin 23.9 pg (27-33); Mean Corpuscular Hgb Conc 32.5 g/dL (31-36); Mean Corpuscular Volume 73.4 fL (80-97); Mean Platelet Volume 8.4 fL (7.5-11.2); Platelet Count 622 10^3/uL (150-450); Red Blood Count 3.94 10^6/uL (4.06-5.63); Red Cell Distribution Width 19.6 % (12-17)
[2022-10-22 08:05] LABS: Transferrin < 75 mg/dL (203-362)
[2022-10-22] MEDS: Furosemide 40 mg/4 ml IV VIAL IV SCH ×4 (08:47→21:26)
[2022-10-22] MEDS: Polyethylene Glycol 3350 17 GM PACKET PO SCH ×2 (08:47→21:27)
[2022-10-22 09:14] LABS: INR 1.37 (0.88-1.18)
[2022-10-22 09:21] LABS: Albumin 1.9 g/dL (3.2-5.2); Albumin/Globulin Ratio 0.5 (1-3); Calcium 7.4 mg/dL (8.6-10.3); Creatinine, Serum 0.6 mg/dL (0.67-1.17); Globulin 3.6 g/dL (2-4); Magnesium 1.8 mg/dL (1.9-2.7); Potassium 3.7 mmol/L (3.5-5.0); Total Bilirubin 0.2 mg/dL (0.2-1.0); Total Protein 5.5 g/dL (6.4-8.9); eGFR CKD-EPI 122.8 (>60)
[2022-10-22] MEDS: Magnesium Hydroxide LIQ 30 ML UDC PO SCH (09:34)
[2022-10-22] MEDS: Nystatin SUSPENSION 100,000 UNITS/ML UDC PO SCH ×4 (09:34→21:26)
[2022-10-22] MEDS: oxyCODONE SR 10 mg TAB PO SCH ×2 (09:36→21:26)
[2022-10-22 10:09] LABS: Fluid Type, Albumin PERITONEAL; Fluid Type, Protein, Total PERITONEAL; Glucose, BF 6 mg/dL; Total Protein, BF 3.1 g/dL
[2022-10-22 11:02] LABS: C Reactive Protein 119.45 mg/L (<8.01)
[2022-10-22 11:18] LABS: Ferritin 206.3 ng/mL (24-336)
[2022-10-22 11:41] LABS: Body Fluid WBC 59434 /mcL
[2022-10-22] MEDS: Enoxaparin 40 MG/0.4 ML SYR SUBCUT SCH (12:01)
[2022-10-22 13:58] LABS: Body Fluid Appearance Cloudy; Body Fluid Mono 6 %; Body Fluid Source Peritonial Fluid; Body Fluid Total Cells Counted 200
[2022-10-22 13:59] LABS: Body Fluid Color Yellow
[2022-10-22] MEDS: Insulin GLARGINE 100 un/ml 10 ml VIAL SUBCUT SCH (21:25)
[2022-10-22] MEDS: Senna TAB 8.6 mg TAB PO SCH (21:26)
[2022-10-23] MEDS: Acetaminophen IV 1 GM/100ML 1,000 MG/100 ML BAG IV SCH ×2 (05:08→15:18)
[2022-10-23 05:25] LABS: ABS Lymphocytes 1.7 10^3/uL (1.0-4.8); ABS Monocytes 0.9 10^3/uL (0.0-1.1); ABS Neutrophils 18.2 10^3/uL (1.5-7.6); ABS Nucleated RBC 0.01 10^3/ul; Eosinophil % 0.1 %; Hematocrit 26.7 % (38-53); Hemoglobin 8.7 g/dL (13.2-16.3); Lymphocyte % 8.1 %; Mean Corpuscular Hemoglobin 23.8 pg (27-33); Mean Corpuscular Hgb Conc 32.6 g/dL (31-36); Mean Platelet Volume 8.4 fL (7.5-11.2); Nucleated Red Blood Cells % 0.1 /100 WBC (0.0-0.4); Platelet Count 649 10^3/uL (150-450); Red Blood Count 3.65 10^6/uL (4.06-5.63); Red Cell Distribution Width 19.3 % (12-17); White Blood Count 20.9 10^3/uL (3.6-10.2)
[2022-10-23 05:39] LABS: Albumin/Globulin Ratio 0.5 (1-3); Calcium 7.4 mg/dL (8.6-10.3); Creatinine, Serum 0.51 mg/dL (0.67-1.17); Magnesium 1.5 mg/dL (1.9-2.7); Potassium 3.8 mmol/L (3.5-5.0); Total Bilirubin 0.2 mg/dL (0.2-1.0)
[2022-10-23] MEDS ORDERED: Vancomycin Trough Check NOTE FOLLOW UP ONE (06:00)
[2022-10-23] MEDS: Vancomycin 1,250 MG in NS 0.9% 250 ml 250 ML IVPB SCH (06:29)
[2022-10-23] MEDS: Furosemide 40 mg/4 ml IV VIAL IV SCH ×2 (08:17→20:11)
[2022-10-23] MEDS: Nystatin SUSPENSION 100,000 UNITS/ML UDC PO SCH ×4 (08:19→20:16)
[2022-10-23] MEDS: Polyethylene Glycol 3350 17 GM PACKET PO SCH ×2 (08:22→20:14)
[2022-10-23] MEDS: oxyCODONE SR 10 mg TAB PO SCH ×2 (08:22→20:17)
[2022-10-23] MEDS: Magnesium Hydroxide LIQ 30 ML UDC PO PRN ×2 (10:01→20:33)
[2022-10-23] MEDS: Senna TAB 8.6 mg TAB PO SCH ×2 (10:03→20:17)
[2022-10-23 10:44] LABS: Creatinine, Serum 0.61 mg/dL (0.67-1.17); eGFR CKD-EPI 122.2 (>60)
[2022-10-23] MEDS: Enoxaparin 40 MG/0.4 ML SYR SUBCUT SCH (11:55)
[2022-10-23] MEDS: Vancomycin 1000 MG in NS 0.9% 250 ML IVPB SCH ×2 (17:15→22:13)
[2022-10-23] MEDS: Insulin GLARGINE 100 un/ml 10 ml VIAL SUBCUT SCH (20:16)
[2022-10-24] MEDS ORDERED: Magnesium Sulfate IV 3 GM in NS 0.9% 100 ml BAG 100 ML IVPB ONE (04:03)
[2022-10-24] MEDS ORDERED: Potassium Chlor 20 meq TAB.ER PO ONE (04:05)
[2022-10-24 05:14] LABS: Hematocrit 26.1 % (38-53); Hemoglobin 8.6 g/dL (13.2-16.3); Mean Corpuscular Hemoglobin 24.2 pg (27-33); Mean Corpuscular Hgb Conc 33.1 g/dL (31-36); Mean Corpuscular Volume 73.3 fL (80-97); Mean Platelet Volume 8.4 fL (7.5-11.2); Platelet Count 715 10^3/uL (150-450); Red Blood Count 3.56 10^6/uL (4.06-5.63); Red Cell Distribution Width 19.6 % (12-17); White Blood Count 26.4 10^3/uL (3.6-10.2)
[2022-10-24 05:16] LABS: INR 1.46 (0.88-1.18)
[2022-10-24 05:23] LABS: Albumin/Globulin Ratio 0.5 (1-3); Calcium 7.3 mg/dL (8.6-10.3); Creatinine, Serum 0.61 mg/dL (0.67-1.17); Globulin 4.2 g/dL (2-4); Potassium 3.8 mmol/L (3.5-5.0); Total Bilirubin 0.2 mg/dL (0.2-1.0); Total Protein 6.2 g/dL (6.4-8.9); eGFR CKD-EPI 122.2 (>60)
[2022-10-24] MEDS ORDERED: Vancomycin Trough Check NOTE FOLLOW UP ONE (05:30)
[2022-10-24] MEDS: Vancomycin 1000 MG in NS 0.9% 250 ML IVPB SCH ×3 (05:36→21:43)
[2022-10-24] MEDS: Nystatin SUSPENSION 100,000 UNITS/ML UDC PO SCH ×3 (08:11→17:16)
[2022-10-24] MEDS: Senna TAB 8.6 mg TAB PO SCH ×2 (08:12→20:17)
[2022-10-24] MEDS: oxyCODONE SR 10 mg TAB PO SCH ×2 (08:13→20:17)
[2022-10-24] MEDS: Furosemide 40 mg/4 ml IV VIAL IV SCH ×2 (08:13→20:18)
[2022-10-24] MEDS: Polyethylene Glycol 3350 17 GM PACKET PO SCH ×2 (08:36→20:23)
[2022-10-24] MEDS: Enoxaparin 40 MG/0.4 ML SYR SUBCUT SCH (10:03)
[2022-10-24 10:35] LABS: Albumin, BF 1.1 g/dL; Fluid Type, Albumin PERITONEAL; Fluid Type, Protein, Total PERITONEAL; Glucose, BF < 2 mg/dL; Total Protein, BF 3.2 g/dL
[2022-10-24 12:15] LABS: Lactate Dehydrogenase, BF > 9000 U/L
[2022-10-24] MEDS: Magnesium Hydroxide LIQ 30 ML UDC PO PRN (20:18)
[2022-10-24] MEDS ORDERED: Insulin GLARGINE 100 un/ml 10 ml VIAL SUBCUT SCH (21:00)
[2022-10-25] MEDS: Vancomycin 1000 MG in NS 0.9% 250 ML IVPB SCH ×3 (07:03→22:59)
[2022-10-25 08:14] LABS: Hematocrit 25.1 % (38-53); Mean Corpuscular Hemoglobin 23.7 pg (27-33); Mean Corpuscular Hgb Conc 31.9 g/dL (31-36); Mean Corpuscular Volume 74.2 fL (80-97); Mean Platelet Volume 8.6 fL (7.5-11.2); Platelet Count 725 10^3/uL (150-450); Red Blood Count 3.38 10^6/uL (4.06-5.63); Red Cell Distribution Width 18.9 % (12-17); White Blood Count 22.1 10^3/uL (3.6-10.2)
[2022-10-25 08:29] LABS: Albumin 1.8 g/dL (3.2-5.2); Albumin/Globulin Ratio 0.5 (1-3); Calcium 7.2 mg/dL (8.6-10.3); Creatinine, Serum 0.47 mg/dL (0.67-1.17); Globulin 3.9 g/dL (2-4); Potassium 4.5 mmol/L (3.5-5.0); Total Bilirubin 0.2 mg/dL (0.2-1.0); Total Protein 5.7 g/dL (6.4-8.9); eGFR CKD-EPI 132.2 (>60)
[2022-10-25] MEDS: Senna TAB 8.6 mg TAB PO SCH ×2 (08:51→21:39)
[2022-10-25] MEDS: oxyCODONE SR 10 mg TAB PO SCH ×2 (08:52→21:37)
[2022-10-25] MEDS: Furosemide 40 mg/4 ml IV VIAL IV SCH ×2 (08:53→21:59)
[2022-10-25] MEDS: Polyethylene Glycol 3350 17 GM PACKET PO SCH ×2 (09:03→21:58)
[2022-10-25] MEDS: Enoxaparin 40 MG/0.4 ML SYR SUBCUT SCH (11:53)
[2022-10-25] MEDS: Magnesium Hydroxide LIQ 30 ML UDC PO PRN (13:50)
[2022-10-25 14:56] LABS: Complement C3 94 mg/dL (75 - 175)
[2022-10-25 19:34] LABS: Liver/Kidney Microsomes Ab <5.0 U
[2022-10-25] MEDS: Insulin GLARGINE 100 un/ml 10 ml VIAL SUBCUT SCH (21:59)
[2022-10-26] MEDS ORDERED: Vancomycin Trough Check NOTE FOLLOW UP ONE (05:30)
[2022-10-26 06:44] LABS: ABS Lymphocytes 1.7 10^3/uL (1.0-4.8); ABS Monocytes 0.9 10^3/uL (0.0-1.1); ABS Neutrophils 18.5 10^3/uL (1.5-7.6); ABS Nucleated RBC 0.01 10^3/ul; Eosinophil % 0.1 %; Hematocrit 25.7 % (38-53); Hemoglobin 8.1 g/dL (13.2-16.3); Lymphocyte % 8.1 %; Mean Corpuscular Hemoglobin 23.5 pg (27-33); Mean Corpuscular Hgb Conc 31.7 g/dL (31-36); Mean Corpuscular Volume 74.2 fL (80-97); Mean Platelet Volume 8.4 fL (7.5-11.2); Platelet Count 856 10^3/uL (150-450); Red Blood Count 3.47 10^6/uL (4.06-5.63); Red Cell Distribution Width 18.7 % (12-17); White Blood Count 21.1 10^3/uL (3.6-10.2)
[2022-10-26 07:17] LABS: Vancomycin Trough 16.1 mcg/mL
[2022-10-26] MEDS: Vancomycin 1000 MG in NS 0.9% 250 ML IVPB SCH ×3 (08:14→21:38)
[2022-10-26] MEDS: Furosemide 40 mg/4 ml IV VIAL IV SCH ×2 (08:14→21:40)
[2022-10-26] MEDS: Senna TAB 8.6 mg TAB PO SCH ×2 (08:15→21:37)
[2022-10-26] MEDS: oxyCODONE SR 10 mg TAB PO SCH ×2 (08:16→21:33)
[2022-10-26] MEDS: Polyethylene Glycol 3350 17 GM PACKET PO SCH (08:28)
[2022-10-26 08:45] LABS: Albumin 1.5 g/dL (3.2-5.2); Albumin/Globulin Ratio 0.5 (1-3); Calcium 5.5 mg/dL (8.6-10.3); Globulin 3.1 g/dL (2-4); Potassium 3.1 mmol/L (3.5-5.0); Total Bilirubin 0.2 mg/dL (0.2-1.0); Total Protein 4.6 g/dL (6.4-8.9)
[2022-10-26 08:49] LABS: Creatinine, Serum 0.33 mg/dL (0.67-1.17); eGFR CKD-EPI 147.1 (>60)
[2022-10-26] MEDS ORDERED: Potassium EFFERVES 25 meq TAB PO ONE (09:06)
[2022-10-26] MEDS: Enoxaparin 40 MG/0.4 ML SYR SUBCUT SCH (09:38)
[2022-10-26] MEDS ORDERED: Calcium Gluconate 2 GM in NS 0.9% 100 ml BAG 100 ML IV ONE (09:57)
[2022-10-26 11:38] LABS: C-ANCA Negative (Negative); P-ANCA Negative (Negative)
[2022-10-26] MEDS: Insulin GLARGINE 100 un/ml 10 ml VIAL SUBCUT SCH (23:00)
[2022-10-27] MEDS: Vancomycin 1000 MG in NS 0.9% 250 ML IVPB SCH ×3 (05:16→21:53)
[2022-10-27 05:49] LABS: ABS Lymphocytes 1.6 10^3/uL (1.0-4.8); ABS Monocytes 0.8 10^3/uL (0.0-1.1); ABS Neutrophils 17.3 10^3/uL (1.5-7.6); ABS Nucleated RBC 0.01 10^3/ul; Eosinophil % 0.1 %; Hematocrit 23.9 % (38-53); Hemoglobin 7.6 g/dL (13.2-16.3); Mean Corpuscular Hemoglobin 23.1 pg (27-33); Mean Corpuscular Hgb Conc 31.7 g/dL (31-36); Mean Corpuscular Volume 72.8 fL (80-97); Mean Platelet Volume 8.7 fL (7.5-11.2); Platelet Count 846 10^3/uL (150-450); Red Blood Count 3.28 10^6/uL (4.06-5.63); Red Cell Distribution Width 18.9 % (12-17); White Blood Count 19.8 10^3/uL (3.6-10.2)
[2022-10-27 06:07] LABS: Albumin 1.9 g/dL (3.2-5.2); Albumin/Globulin Ratio 0.4 (1-3); Calcium 7.7 mg/dL (8.6-10.3); Creatinine, Serum 0.49 mg/dL (0.67-1.17); Globulin 4.3 g/dL (2-4); Potassium 3.9 mmol/L (3.5-5.0); Total Bilirubin 0.3 mg/dL (0.2-1.0); Total Protein 6.2 g/dL (6.4-8.9); eGFR CKD-EPI 130.6 (>60)
[2022-10-27] MEDS: Magnesium Hydroxide LIQ 30 ML UDC PO PRN ×2 (08:27→21:53)
[2022-10-27] MEDS: Furosemide 40 mg/4 ml IV VIAL IV SCH ×2 (08:27→20:51)
[2022-10-27] MEDS: oxyCODONE SR 10 mg TAB PO SCH ×2 (08:28→20:46)
[2022-10-27] MEDS ORDERED: Polyethylene Glycol 3350 17 GM PACKET PO SCH (09:00)
[2022-10-27] MEDS: Enoxaparin 40 MG/0.4 ML SYR SUBCUT SCH (10:10)
[2022-10-27] MEDS: Senna TAB 8.6 mg TAB PO SCH (20:47)
[2022-10-27] MEDS ORDERED: Insulin GLARGINE 100 un/ml 10 ml VIAL SUBCUT SCH (21:00)
[2022-10-27 23:16] VITALS: BP 129/77
[2022-10-29] MEDS ORDERED: Vancomycin Trough Check NOTE FOLLOW UP ONE (05:30)
== END 2022-10-27 23:04 | disposition short-term general hospital (02) | DRG 710 ==
LOC: ED 13:04 → EDHOLD 17:09 → SUATTDRO 17:09 → MEDTELE 17:30 → ICU 17:45 → MEDTELE 10-14 15:46
PROVIDERS: ADMIT Internal Medicine; ATTEND Internal Medicine
PROC: O.CATEE (2022-10-19 15:45)